=== PATIENT | male | born 1980 | race Caucasian/White ===

== ENCOUNTER 2024-05-17 09:20 | Outpatient (CLI) | payer OTHER | END 2024-05-17 09:21 | disposition home or self-care (01) | LOC: CSHSLEEP 09:20 | PROVIDERS: ATTEND Family Medicine | DX: G47.10 Hypersomnia, unspecified (principal); G47.9 Sleep disorder, unspecified; R53.83 Other fatigue; F32.A Depression, unspecified; E66.9 Obesity, unspecified; Z68.34 Body mass index [BMI] 34.0-34.9, adult; R06.83 Snoring; G47.33 Obstructive sleep apnea (adult) (pediatric) | CPT/HCPCS: 95800 ==